=== PATIENT | male | born 1990 | race Caucasian/White ===

== ENCOUNTER 2016-04-05 19:09 | Emergency (ER) | payer MEDICARE, MEDICAID ==
[~2016-04-05] VITALS: Ht 170.2 cm; Wt 104.0 kg
[2016-04-05 19:21] VITALS: Ht 170.2 cm; Wt 104.0 kg
[2016-04-05] MEDS ORDERED: HYDROCODONE/APAP (10/325) TAB PO ONE (20:30)
--- NOTE | 2016-04-05 21:07 | RADRPT ---
PROCEDURE: XR Elbow. CLINICAL INDICATION: Trauma. TECHNIQUE: AP, lateral and oblique views of the right elbow performed. COMPARISON: None. FINDINGS: Osseous fragment posterior to the olecranon process compatible avulsion fracture. The parent defect appears to be in the superior posterior olecranon. Posterior soft tissue swelling . The bones are normal in mineralization without cortical destruction. No elevation of the anterio r or posterior fat pad to suggest joint effusion or occult fracture. No soft tissue abnormality. T he distal humerus, proximal radius and ulna are unremarkable. IMPRESSION: Avulsion fracture of the posterior superior olecranon process. Posterior soft tissue edema/hematoma . RPTAT:AAJJ Physician Hanna Date Time Electronically viewed and signed by Physician Hanna on 04/05/2016 21:07 JOE/
--- NOTE | 2016-04-05 21:07 | RADRPT ---
PROCEDURE: Left knee x-ray CLINICAL INDICATION: TRAUMA fall. Knee pain. TECHNIQUE: AP, lateral and oblique views of the left knee were obtained. COMPARISON: None FINDINGS: There is normal mineralization. No acute fracture or dislocation is seen. There are no significant degenerative changes. There is no joint effusion. There is no significant soft tissue swelling. IMPRESSION: Normal x-ray of the left knee. Jermaine Wells Physician Date Time Electronically viewed and signed by Physician Hanna on 04/05/2016 21:07 JOE/
--- NOTE | 2016-04-05 21:48 | ERD ---
ER Documentation Chief Complaint Date/Time DATE: 04/05/16 TIME: 21:45 Chief Complaint sp fall from stairs, no loc. both knee pain, right elbow pain HPI Patient is a pleasant 25-year-old male who states he was outside walking and fell down the stairs secondary to wet stairs and he now has pain in his left knee and right elbow. He has limited range of motion in both. He states he is however able to put weight on his knee. Pain is 10 out of 10. Denies any numbness or tingling. Denies any head injury or KO. Patient is a dialysis patient however he denies any correlation to this fall and denies any preceding dizziness, headache, weakness, chest pain, shortness of breath and states it is secondary to the wet stairs. ROS All systems reviewed and are negative except as per history of present illness. Allergies Allergies: Coded Allergies: amlodipine (Verified Allergy, Unknown, 04/05/16) PMhx/Soc History of Surgery: Yes (2 permacath removed, AV fistula, right ankle) Anesthesia Reaction: No Hx Neurological Disorder: No Hx Respiratory Disorders: No Hx Cardiac Disorders: Yes (HTN- resolved) Hx Psychiatric Problems: No Hx Miscellaneous Medical Probl: Yes (ESRD, dialysis M,W,F) Hx Alcohol Use: No Hx Substance Use: No Hx Tobacco Use: Yes Smoking Status: Former smoker Physical Exam Vitals Vital Signs Date Time Temp Pulse Resp B/P Pulse Ox O2 Delivery O2 Flow Rate FiO2 04/05/16 19:21 100.2 122 20 172/112 98 Physical Exam General: well developed, well nourished, alert, nontoxic, no distress Head: normocephalic, atraumatic Neck: Supple, nontender, no lymphadenopathy, no midline tenderness Respiratory: Clear to auscaultation bilaterally, speaks in full sentences, no use of accesory muscles or labored breathing, no rales, ronchi, or wheezing Cardiovascular: RRR, No murmurs GI: soft, non tender, non distended, negative murphys sign, negative mcburneys point tenderness, no cva tenderness bilaterally, no rebound or guarding Back: no midline tenderness, no step offs or bony abnormalities, sensation to light touch in tact Extremities: Left knee: No erythema, no edema, limited range of motion secondary to pain, sensation to light touch intact, no bony abnormalities. Right elbow: No bony abnormalities, sensation to light touch intact, limited range of motion secondary to pain, Results 24 hrs Current Medications Medications (Trade) Dose Ordered Sig/Dagmar Route PRN Reason Start Time Stop Time Status Last Admin Dose Admin Acetaminophen/ Hydrocodone Bitart ([place] (10)) 1 tab ONCE ONCE PO 04/05/16 20:30 04/05/16 20:31 DC 04/05/16 20:25 Procedures/MDM Patient has knee and elbow pain after mechanical fall. He is neurovascular intact. X-ray of the knee was unremarkable however x-ray of the elbow does show Avulsion fracture of the posterior superior olecranon process. Posterior soft tissue edema/hematoma. I reviewed the finding with my supervising physician Dr. Aden and we agreed patient should be placed in a long-arm splint. His knee was also Matthew wrap and he was given permission for pain medication outpatient referral to orthopedics as well as copy of his radiology report and CD with images. Recommended this patient follow up with her primary care doctor within 48 hours or return to the emergency room for any worsening of symptoms. However this time I do believe there is suitable for outpatient management. I answered all their questions and they agreed with the plan and were discharged home. Departure Diagnosis: Primary Impression: Elbow fracture Additional Impression: Knee contusion Condition: Stable LANDON CLINE PA-C Apr 05, 2016 21:48
[2016-04-05] MEDS ORDERED: HYDR-902 PO (21:49)
[2016-04-05 22:57] VITALS: BP 158/80; PULSE 77; RESP 20; TEMP 98
== END 2016-04-05 23:05 | disposition home or self-care (01) ==
LOC: FTE 19:09
DX: S52.021A Displaced fracture of olecranon process without intraarticular extension of right ulna, initial encounter for closed fracture (principal); S80.02XA Contusion of left knee, initial encounter; I12.0 Hypertensive chronic kidney disease with stage 5 chronic kidney disease or end stage renal disease; N18.6 End stage renal disease; W10.9XXA Fall (on) (from) unspecified stairs and steps, initial encounter; Y92.9 Unspecified place or not applicable; Z87.891 Personal history of nicotine dependence; Z99.2 Dependence on renal dialysis
CPT/HCPCS: 73562